=== PATIENT | female | born 1945 | race African-American/Black ===

== ENCOUNTER 2023-12-06 09:54 | Outpatient (CLI) | payer OTHER, MEDICAID | END 2023-12-06 09:55 | disposition home or self-care (01) | PROVIDERS: ATTEND Family Medicine | DX: M48.061 Spinal stenosis, lumbar region without neurogenic claudication (principal); M51.36 Other intervertebral disc degeneration, lumbar region; Z76.89 Persons encountering health services in other specified circumstances ==